=== PATIENT | male | born 1985 | race Caucasian/White ===

== ENCOUNTER 2024-08-16 12:51 | Emergency (ER) | payer MEDICAID, SELFPAY ==
--- NOTE | 2024-08-16 12:54 | XRR_ITS ---
PROCEDURE INFORMATION: Exam: XR Chest Exam date and time: 08/16/2024 1:32 PM Age: 38 years old Clinical indication: Pain; Angina pectoris; Additional info: Cp TECHNIQUE: Imaging protocol: Radiologic exam of the chest. Views: 1 view. COMPARISON: CT chest wo con [id number] 08/10/2018 3:22 PM FINDINGS: Lungs: Linear atelectasis at the left lung base. Minimal infiltrate or atelectasis in the right lower lobe. Pleural spaces: Unremarkable. No pleural effusion. No pneumothorax. Heart/Mediastinum: Unremarkable. No cardiomegaly. Bones/joints: Unremarkable. XR/XR chest 1V portable [id number] IMPRESSION: Mild bibasilar opacities.
--- NOTE | 2024-08-16 12:55 | ECG_ITS ---
[employer] Test Date: 2024-08-16 Pat Name: Rakesh Rasmussen Department: Room: Gender: Male [employer] Shear Operator: : 1985 Requested By: Vahid Nunez Order Number: [id number] Thomas MD: Leland Gibson M.D. Measurements Intervals [place] Rate: 94 P: 58 AR: 169 QRS: 31 QRSD: 94 T: 26 QT: 331 QTc: 415 Interpretive Statements SINUS RHYTHM LEFT ATRIAL ENLARGEMENT [-0.15mV P-WAVE IN V1/V2] No previous ECG available for comparison Electronically Signed On 08-19-2024 19:15:27 CDT by Leland Gibson M.D. [email or web address]
[2024-08-16 12:59] VITALS: BP 118/70; PULSE 100; RESP 17; TEMP 36.6; O2SAT 94; BMI 26.9
[2024-08-16 14:05] LABS: Basophils % 0.5 %; Eosinophils # 0.2 10^3/uL (0.0-0.8); Eosinophils % 2.9 %; Hematocrit 45.9 % (37-53); Lymphocytes # 1.5 10^3/uL (0.8-4.8); Lymphocytes % 17.8 %; Mean Corpuscular HGB Conc 32.2 g/dL (30-55); Mean Corpuscular Volume 89.8 fl (82-101); Mean Platelet Volume 9.3 fL (7.4-10.4); Monocytes # 0.9 10^3/uL (0.2-0.9); Monocytes % 10.3 %; Neutrophils # 5.69 10^3/uL (1.8-7.7); Neutrophils % 68.3 %; Nucleated Red Blood Cells % 0 %; Platelet Count 262 10^3/cmm (157-399); Red Blood Count 5.11 10^6/uL (3.85-5.65); Red Cell Distribution Width 12.3 % (12.1-15.1); White Blood Count 8.33 10^3/uL (3.29-11.43)
[2024-08-16 14:20] LABS: Influenza A NEGATIVE (Negative); Influenza B NEGATIVE (Negative); Respiratory Syncytial Virus Ce NEGATIVE (Negative); SARS-CoV-2 PCR NEGATIVE (Negative)
--- NOTE | 2024-08-16 14:22 | W.ED.URI ---
HPI - URI/Sore Throat General: Chief Complaint: Upper Respiratory Infection Stated Complaint: chest tightness Time Seen by Provider: 08/16/24 14:03 Source: patient Mode of arrival: ambulatory Limitations: no limitations History of Present Illness: Patient is a 38-year-old male here with a main complaint of chest tightness and shortness of breath. He states 3 to 4 days ago he began feeling ill with fevers, chills, body aches, nasal congestion, cough. Significant other states they have several children sick with identical symptoms. She states patient is an asthmatic and simple URIs can complicate his breathing. He states normally he rarely uses his rescue albuterol inhaler but has been using it more so over the past few days. He feels like he is not getting good sleep secondary to the nonproductive cough keeping him up. He arrives in no acute distress with stable vital signs. MD elicited complaint: cough and other (chest tightness) Pertinent past history: asthma Onset (ago): day(s) Severity: mild Description of mucous: clear Able to tolerate fluids by mouth: Yes Exacerbating factors: nothing Relieving factors: nothing Context: sick contacts (children) Associated symptoms: Reports chills, chest pain (chest tightness) and fever(s); Deny abdominal pain, headache(s), nausea or vomiting Treatments prior to arrival: none Related Data Previous Rx's ?Medication ?Instructions ?Recorded budesonide-formoterol HFA 80 2 puff inhalation BID 7 days #10.2 08/16/24 mcg-4.5 mcg/actuation aerosol grams inhaler (Symbicort) levofloxacin 500 mg tablet 500 mg PO DAILY 7 days #7 tabs 08/16/24 Allergies Allergy/AdvReac Type Severity Reaction Status Date / Time No Known Allergies Allergy Verified 08/16/24 13:02 Review of Systems Const: Reports: fever(s), chills and body aches; Denies: fatigue or malaise Card: Reports: chest pain (chest tightness) and dyspnea on exertion; Denies: palpitations, irregular heart rhythm, edema, swelling of feet/ankles, lightheadedness, syncope, pre-syncope, orthopnea, leg pain with exertion or acrocyanosis Resp: Reports: dyspnea, non-productive cough and chest congestion GI: Denies: abdominal pain, nausea or vomiting : Denies: flank pain or dysuria Musc: Denies: neck pain, back pain, extremity pain, extremity swelling, joint swelling or joint redness Skin/Breast: Denies: rash Neuro: Denies: headache(s), numbness in extremities, weakness in extremities, sensory changes or dizziness Physical Exam Const: COMMON NORMALS: no acute distress, average body habitus, patient oriented x3, no limitations, healthy appearing, alert and well nourished HENMT: FACE & SINUS: normal facial exam Neck/C-Spine: COMMON NORMALS: full ROM, no lymphadenopathy, supple and no meningeal signs Chest: COMMONS NORMALS: normal inspection of the chest and normal palpation of entire chest wall Resp: COMMON NORMALS: normal respiratory effort and clear to auscultation bilaterally AUSCULTATION: clear to auscultation bilaterally Cardio: COMMON NORMALS: regular rate and regular rhythm RATE: regular rate RHYTHM: regular rhythm Extremity: COMMON NORMALS: normal to inspection, no clubbing, cyanosis or edema, no calf tenderness and no pedal edema GENERAL: Yes normal exam except as noted Neuro: COMMON NORMALS: patient oriented x3 SENSORIUM/ORIENTATION: Yes alert MENINGEAL SIGNS: Yes no meningeal signs Skin: COMMON NORMALS: no rashes or lesions noted GENERAL SKIN EXAM: no rashes or lesions noted Course Vital Signs: Vital signs: Vital Signs Temperature 97.9 F 08/16/24 12:59 Pulse Rate 100 08/16/24 12:59 Respiratory Rate 17 08/16/24 12:59 Blood Pressure 118/70 08/16/24 12:59 Pulse Oximetry 94 08/16/24 12:59 Oxygen Delivery Me thod Room Air 08/16/24 12:59 MDM - URI/Sore Throat Medical Decision Making Patient clinically appears no acute distress. His vital signs are stable. Blood work is unremarkable. COVID/flu/RSV testing is negative. CXR showing basilar opacities. I suspect these are viral in origin however he will be covered with antibiotics. Requesting inhaled corticosteroid to help with his asthma which I think is reasonable. Return ED precautions discussed. Medical Records I reviewed the patient's medical records. Lab Data I reviewed the patient's lab results. 08/16/24 13:47 08/16/24 13:47 Radiology Impressions Chest X-Ray 08/16/24 12:54 IMPRESSION: Mild bibasilar opacities. Laboratory Results WBC 8.33 10^3/uL (3.29-11.43) 08/16/24 13:47 RBC 5.11 10^6/uL (3.85-5.65) 08/16/24 13:47 Hgb 14.80 g/dL (11.27-16.99) 08/16/24 13:47 Hct 45.9 % (37-53) 08/16/24 13:47 MCV 89.8 fl (82-101) 08/16/24 13:47 MCH 29.0 pg (27-33) 08/16/24 13:47 MCHC 32.2 g/dL (30-55) 08/16/24 13:47 RDW 12.3 % (12.1-15.1) 08/16/24 13:47 Plt Count 262 10^3/cmm (157-399) 08/16/24 13:47 MPV 9.3 fL (7.4-10.4) 08/16/24 13:47 Neut % (Auto) 68.3 % 08/16/24 13:47 Lymph % (Auto) 17.8 % 08/16/24 13:47 [place] % (Auto) 10.3 % 08/16/24 13:47 Eos % (Auto) 2.9 % 08/16/24 13:47 Baso % (Auto) 0.5 % 08/16/24 13:47 Neut # (Auto) 5.69 10^3/uL (1.8-7.7) 08/16/24 13:47 Lymph # (Auto) 1.5 10^3/uL (0.8-4.8) 08/16/24 13:47 [place] # (Auto) 0.9 10^3/uL (0.2-0.9) 08/16/24 13:47 Eos # (Auto) 0.2 10^3/uL (0.0-0.8) 08/16/24 13:47 Baso # (Auto) 0.0 10^3/uL (0.0-0.1) 08/16/24 13:47 Nucleated RBC % (auto) 0 % 08/16/24 13:47 Nucleated RBCs # 0.0 /100WBC 08/16/24 13:47 Sodium 138 mmol/L (136-145) 08/16/24 13:47 Potassium 4.2 mmol/L (3.5-5.1) 08/16/24 13:47 Chloride 102 mmol/L (98-107) 08/16/24 13:47 Carbon Dioxide 23 mmol/L (22-29) 08/16/24 13:47 Anion Gap 17.2 (5-19) 08/16/24 13:47 BUN 11 mg/dL (6-20) 08/16/24 13:47 Creatinine 1.0 mg/dL (0.7-1.2) 08/16/24 13:47 GFR Calculation 84.5 mL/min (90-130) L 08/16/24 13:47 Glucose 98 mg/dL (65-115) 08/16/24 13:47 Calculated Osmolality 285 mOsm/kg (285-295) 08/16/24 13:47 Calcium 9.2 mg/dL (8.5-10.5) 08/16/24 13:47 Total Bilirubin 0.5 mg/dL (0.15-1.2) 08/16/24 13:47 AST 19 U/L (0-40) 08/16/24 13:47 ALT 19 U/L (0-41) 08/16/24 13:47 Alkaline Phosphatase 79 U/L (40-130) 08/16/24 13:47 Troponin T Baseline < 6 ng/L (0-15) 08/16/24 13:47 Total Protein 7.5 g/dL (6.6-8.7) 08/16/24 13:47 Albumin 4.2 g/dL (3.5-5.2) 08/16/24 13:47 Globulin 3.3 g/dL (1.3-4.6) 08/16/24 13:47 Lipase 18 U/L (13-60) 08/16/24 13:47 Influenza A (PCR) Negative (Negative) 08/16/24 13:04 Influenza Type B (PCR) Negative (Negative) 08/16/24 13:04 RSV (PCR) Negative (Negative) 08/16/24 13:04 SARS-CoV-2 (PCR) Negative (Negative) 08/16/24 13:04 All radiology interpretation(s) finalized by discharge Discharge Plan Discharge Patient Disposition: Home Clinical Impression: Asthma exacerbation Qualifiers: Asthma severity: unspecified severity Asthma persistence: unspecified Qualified Code(s): J45.901 - Unspecified asthma with (acute) exacerbation Pneumonia Qualifiers: Pneumonia type: due to unspecified organism Laterality: bilateral Lung location: unspecified part of lung Qualified Code(s): J18.9 - Pneumonia, unspecified organism Condition: Stable Prescriptions: New budesonide-formoterol [Symbicort] 80-4.5 mcg/actuation HFA aerosol inhaler 2 puff inhalation BID 7 Days Qty: 10.2 0RF levofloxacin 500 mg tablet 500 mg PO DAILY 7 Days Qty: 7 0RF Discharge Orders: Discharge ED (Routine); Ordered 08/16/24 Ordered By: Gerda Medina Referrals: Arabella Morgan MD [Primary Care Provider] - Print Language: Kazakh Coding Level of Care Code ED Obstetrics Nurse Practitioner for Diana Molina
[2024-08-16 14:50] LABS: Alanine Aminotransferase 19 U/L (0-41); Albumin Level 4.2 g/dL (3.5-5.2); Alkaline Phosphatase 79 U/L (40-130); Anion Gap 17.2 (5-19); Aspartate Amino Transferase 19 U/L (0-40); Blood Urea Nitrogen 11 mg/dL (6-20); Calcium 9.2 mg/dL (8.5-10.5); Carbon Dioxide 23 mmol/L (22-29); Chloride 102 mmol/L (98-107); Creatinine Clr Calc Pharmacy 126.2756; Globulin 3.3 g/dL (1.3-4.6); Glomerular Filtration Rate 84.5 mL/min (90-130); Glucose 98 mg/dL (65-115); Lipase 18 U/L (13-60); Osmolality Calculated 285 mOsm/kg (285-295); Potassium 4.2 mmol/L (3.5-5.1); Sodium 138 mmol/L (136-145); Total Bilirubin 0.5 mg/dL (0.15-1.2); Total Protein 7.5 g/dL (6.6-8.7)
[2024-08-16 15:12] LABS: Troponin(5th) Baseline < 6 ng/L (0-15)
[2024-08-16 15:27] VITALS: BP 129/67; PULSE 86; O2SAT 95
[2024-08-16 15:28] VITALS: BP 129/67; PULSE 86; O2SAT 95
== END 2024-08-16 15:29 | disposition home or self-care (01) ==
PROVIDERS: Emergency Medicine; Emergency Provider Physician Assistant; PCP Family Medicine
DX: J45.901 Unspecified asthma with (acute) exacerbation (principal); J18.9 Pneumonia, unspecified organism; Z11.52 Encounter for screening for COVID-19
CPT/HCPCS: 36415; 71045; 80053; 83690; 84484; 85025; 87637; 93005; 99285